=== PATIENT | female | born 1940 | race Caucasian/White ===

== ENCOUNTER 2017-03-22 23:06 | Inpatient (IN) ==
[2017-03-22] MEDS ORDERED: ASPIRIN PO STA (23:22)
[2017-03-22] MEDS ORDERED: CARDIZEM ONE (23:30)
[2017-03-22] MEDS ORDERED: CARDIZEM IV ONE (23:33)
[2017-03-22] MEDS ORDERED: CARDIZEM 100 MG/NS 100 MG/100 ML IVPB IV SCH (23:39)
[2017-03-22] MEDS: CARDIZEM 100 MG/NS 100 MG/100 ML IVPB IV SCH (23:49)
[2017-03-22 23:51] LABS: MANUAL DIFF NEEDED? NO
[2017-03-22 23:54] LABS: BASO% 0.4 % (0.0-0.8); EOS# 0.17 X1000 (0.0-0.7); EOS% 2.1 % (0.0-10.0); HEMATOCRIT 42.3 % (37.0-47.0); HEMOGLOBIN 14.4 g/dL (12.0-16.0); IMM GRAN# 0.02 X1000 (0.0-0.04); IMM GRAN% 0.2 % (0.0-0.5); LYMPH# 2.59 X1000 (1.2-3.4); LYMPH% 31.4 % (20.5-51.1); MCH 30.6 PG (27-31); MCV 89.8 FL (81-99); MONO# 1.18 X1000 (0.11-0.59); MONO% 14.3 % (1.7-9.3); NEUT% 51.6 % (42.2-75.2); PLT 197 X1000 (130-400); RBC 4.71 XMIL (4.2-5.4)
[2017-03-23 00:10] LABS: INR 1.02; PROTIME 10.7 Seconds (9.2-11.7); PTT 28.2 Seconds (22.0-36.0)
[2017-03-23 00:12] LABS: ALBUMIN 4.5 g/dL (3.5-5.0); CALCIUM 9.2 mg/dL (8.8-10.2); MAGNESIUM 2.1 mg/dL (1.5-2.7); TOTAL BILIRUBIN 0.47 mg/dL (0.20-1.00); TOTAL PROTEIN 7.6 g/dL (6.3-8.3)
[2017-03-23] MEDS: CARDIZEM 100 MG/NS 100 MG/100 ML IVPB IV SCH ×2 (00:31→02:01)
--- NOTE | 2017-03-23 00:42 | PROVIDER DOCUMENTATION ---
This chart was entered by Zaida Pacheco Scribe, acting as scribe for Rico Saenz MD. HPI-Cardiac General - General Chief Complaint: Palpitations Stated Complaint: PALPITATIONS Time Seen by Provider: 03/22/17 23:30 Source: patient Allergies/Adverse Reactions: Patient Allergies Allergy/AdvReac Type Severity Reaction Status Date / Time latex Allergy RASH Verified 03/22/17 23:26 Home Medications: Home Medication List Medication Instructions Recorded Confirmed Last Taken Type Calcium Carbonate/Vitamin D3 1 each PO DAILY 11/04/14 03/22/17 03/22/17 07:00 History [Calcium 600-Vit D3 200 Tablet] Docosahexanoic Acid/Epa [Fish Oil 1 each PO DAILY 11/04/14 03/22/17 03/22/17 07: 00 History Softgel] Esomeprazole Magnesium [Nexium] 20 mg PO DAILY 11/04/14 03/22/17 03/22/17 07:00 History Multivitamin [Multivitamins] 1 each PO DAILY 11/04/14 03/22/17 03/22/17 07:00 History Polyethylene Glycol 3350 [Miralax] 17 gm PO DAILY 11/04/14 03/22/17 03/22/17 07: 00 History Rivaroxaban [Xarelto] 20 mg PO HS 11/04/14 03/22/17 03/21/17 20:00 History Travoprost [Travatan Z] 1 drop OP HS 11/04/14 03/22/17 03/21/17 20:00 History Lisinopril/Hydrochlorothiazide 1 each PO DAILY #0 11/05/14 03/22/17 03/22/17 07 :00 Rx [Lisinopril-Hctz 20-12.5 mg Tab] Furosemide [Lasix] 40 mg PO DAILY #30 tablet 06/10/16 03/22/17 Unknown Rx Potassium Chloride [Klor-Con M20] 20 meq PO DAILY #7 tab.er.prt 06/10/1603/22/17 07:00 Rx Amlodipine Besylate [Amlodipine 5 mg PO DAILY 03/22/17 03/22/17 03/22/17 07:00 History Besylate] Clonazepam [Clonazepam] 0.5 mg PO QHS 03/22/17 03/22/1717 20:00 History - History of Present Illness-Cardiac Nature of Presenting Problem: 76 year old F presents to the ED with a cc of palpitations 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 PT states that she has a history of A-fib. Pt denies nausea, vomiting , chest pains, shortness of breath. Severity in ED: mild Onset/Duration: 1-3 hours ago Timing: still present Palpitation Quality: fast/pounding heart beat History of arrythmia: reports: A-Fib Aspirin Treatment Today: reports: 325 mg x 1, provided by ED Similar Symptoms Previously?: No Recently Seen Here or By Another Healthcare Provider: No Review of Systems - Adult - REVIEW OF SYSTEMS - ADULT Constitutional: denies: chills, fever Eyes: reports: no symptoms reported Ears, Nose, Mouth & Throat: reports: no symptoms reported Cardiovascular: reports: palpitations. denies: chest pain Respiratory: denies: cough, shortness of breath Gastrointestinal: denies: nausea, vomiting Genitourinary: reports: no symptoms reported Musculoskeletal: reports: no symptoms reported Integumentary: reports: no symptoms reported Neurological: reports: no symptoms reported Psychiatric: reports: no symptoms reported Endocrine: reports: no symptoms reported Hematologic/Lymphatic: reports: no symptoms reported Allergic/Immunologic: reports: no symptoms reported All Other Systems: Reviewed and Negative Past History - Adult - PAST MEDICAL HISTORY-ADULT Review of Records: reports: Nursing Assessment Review, Medications Reviewed Major Childhood Illnesses: reports: denies history Cardiovascular: reports: CAD, HTN, hyperlipidemia, palpitations Gastrointestinal: reports: GERD Other Conditions: reports: other cancer (left breast) - PRIOR SURGERIES/PROCEDURES Surgical/Procedure History: reports: cholecystectomy, hysterectomy, joint replacement (total hip), other (left mastectomy, 3 ablasions) - PRIOR HOSPITALIZATIONS Prior Hospitalizations: reports: for similar symptoms - IMMUNIZATION STATUS Childhood Immunizations: See Nurse Assessment Flu Vaccine: See Nurse Assessment - FAMILY HISTORY Family History: reviewed, not pertinent - SOCIAL HISTORY Smoking: non-smoker Substance Use: none/never Alcohol Use Frequency: never Physical Exam-General - PHYSICAL EXAM-ADULT Initial Vital Signs Reviewed: Yes - CONSTITUTIONAL General Appearance: appears well, alert, no apparent distress - RESPIRATORY Respiratory: chest non-tender, lungs clear, normal breath sounds - CARDIOVASCULAR Cardiovascular: irregularly irregular - GASTROINTESTINAL (ABDOMEN) Abdominal Exam: non tender, soft - SKIN Integumentary: normal color, normal turgor, warm/dry - PSYCHIATRIC Psych/Mental Status: normal mood/affect, normal thought content, normal thought process, oriented x 3 Progress - PLAN OF CARE/RESULTS Progress/Plan/Lab Results: Vital Signs - 8 hr 03/22/17 23:20 Pulse Rate 156 H Respiratory Rate 20 Blood Pressure 184/112 O2 Sat by Pulse Oximetry 99 Laboratory Results - last 24 hr 03/22/17 03/22/17 03/22/17 23:27 23:27 23:27 WBC 8.24 RBC 4.71 Hgb 14.4 Hct 42.3 MCV 89.8 MCH 30.6 MCHC 34.0 RDW Std Deviation 14.0 Plt Count 197 MPV 10.0 Immature Gran % (Auto) 0.2 Neut % (Auto) 51.6 Lymph % (Auto) 31.4 [place] % (Auto) 14.3 H Eos % (Auto) 2.1 Baso % (Auto) 0.4 Immature Gran # (Auto) 0.02 Neut # (Auto) 4.25 Lymph # (Auto) 2.59 [place] # (Auto) 1.18 H Eos # (Auto) 0.17 Baso # (Auto) 0.03 PT INR PTT (Actin FS) Sodium 142 Potassium 4.0 Chloride 103 Carbon Dioxide 25 Anion Gap 14 BUN 23 H Creatinine 1.0 H Estimated GFR/1.73 m2 54 BUN/Creatinine Ratio 23 Glucose 115 H Calculated Osmolality 288 Calcium 9.2 Magnesium 2.1 Total Bilirubin 0.47 AST 26 ALT 16 Alkaline Phosphatase 89 Creatine Kinase 159 Troponin T Avw-J-Hyxrytxyutf Pept 273 Total Protein 7.6 Albumin 4.5 Globulin 3.1 Albumin/Globulin Ratio 1.5 03/22/17 03/22/17 23:27 23:27 WBC RBC Hgb Hct MCV MCH MCHC RDW Std Deviation Plt Count MPV Immature Gran % (Auto) Neut % (Auto) Lymph % (Auto) [place] % (Auto) Eos % (Auto) Baso % (Auto) Immature Gran # (Auto) Neut # (Auto) Lymph # (Auto) [place] # (Auto) Eos # (Auto) Baso # (Auto) PT 10.7 INR 1.02 PTT (Actin FS) 28.2 Sodium Potassium Chloride Carbon Dioxide Anion Gap BUN Creatinine Estimated GFR/1.73 m2 BUN/Creatinine Ratio Glucose Calculated Osmolality Calcium Magnesium Total Bilirubin AST ALT Alkaline Phosphatase Creatine Kinase Troponin T < 0.010 Maf-V-Bxrkdutcmny Pept Total Protein Albumin Globulin Albumin/Globulin Ratio Orders Category Date Time Status Admit - [facility] Routine AdmDCTranf 03/23/17 00:39 Ordered Cardiac Monitoring DIRECTED Care 03/22/17 23:22 Active Saline Loc NOW Care 03/22/17 23:22 Active CHEST-PORTABLE [RAD] Stat Exams 03/22/17 23:22 Taken CBC WITH ELECTRONIC DIFF [HEME] Stat Lab 03/22/17 23:27 Completed CK PROFILE [SP CHEM] Stat Lab 03/22/17 23:27 Completed COMPREHENSIVE METABOLIC PANEL [CHEM] Stat Lab 03/22/17 23:27 Completed MAGNESIUM [CHEM] Stat Lab 03/22/17 23:27 Completed PRO B-NATRIURETIC PEPTIDE Stat Lab 03/22/17 23:27 Completed PROTIME WITH INR [COAG] Stat Lab 03/22/17 23:27 Completed PTT [COAG] Stat Lab 03/22/17 23:27 Completed TROPONIN T Stat Lab 03/22/17 23:27 Completed Aspirin Med 03/22/17 23:22 Discontinued 325 mg PO STAT STA Diltiazem 100 mg/Ns [Cardizem 100 mg/Ns] Med 03/22/17 23:36 Active 100 mg in 100 ml IV As Directed Diltiazem [Cardizem] Med 03/22/17 23:33 Discontinued 10 mg IV NOW ONE Diltiazem [Cardizem] Med 03/22/17 23:30 Discontinued 25 mg .ROUTE .STK-MED ONE EKG [EKG] Stat Ther 03/22/17 23:12 Ordered Transfer/Admit Order [TRANSFER] Routine Transfer 03/23/17 00:39 Ordered Result Diagrams: 03/22/17 23:27 03/22/17 23:27 - EKG 1 Time of EKG reading by physician:: 23:18 EKG Read and Signed by:: Rico Saenz EKG Interpretation (*Must complete 3 of following elements*): Abnormal Rate: 164 Rhythm: A-fib with RVR QRS: other (low voltage QRS) ST Wave: non-specific ST changes - XRAY 1 XRAY Study: Chest Impression: Abnormal XRAY Interpretation: mild interstital changes, cardiomegally: Dr. Saenz(ER MD) Departure - Departure Date of Disposition Decision: 03/23/17 Time of Disposition Decision: 00:41 DIAGNOSIS: Atrial fibrillation, Dyspnea Disposition: ADMITTED INPATIENT 09 Certified Medical Emergency: Emergent Condition: Stable Referrals and Follow-Ups: Sedrick Hays MD [Primary Care Provider] - - Critical Care Note This patient required my direct & personal management of CC.: No Attestation - Physician/ SOHAM Attestation The physician spent face to face time with patient:: Yes Advanced Practice Provider documentation review:: The physician spent face to face time with this patient and agrees with all MLP documentation, treatment, and medical decision making by the MLP. See provider notes for further information. This chart was documented by the indicated scribe, (Zaida Pacheco Scribe) and accurately reflects the services I performed and decisions made by me, Rico Saenz MD, as attested by the provider's signature.
[2017-03-23] MEDS ORDERED: LANOXIN IV ONE (01:15)
[2017-03-23] MEDS ORDERED: ZOFRAN IV PRN (03:03)
[2017-03-23] MEDS ORDERED: SALINE LOCK IV FLUID XX ONE (03:03)
[2017-03-23] MEDS ORDERED: TYLENOL PO PRN (03:03)
--- NOTE | 2017-03-23 04:46 | HISTORY AND PHYSICAL ---
DATE AND TIME OF HISTORY AND PHYSICAL: 03/23/2017 at 0110. PRIMARY CARE PROVIDER: Dr. Sedrick Hays. MEDICAL ART THERAPIST: Dr. Zavala at [facility] in [place]. CHIEF COMPLAINT: Palpitations. HISTORY OF PRESENT ILLNESS: Ms. Shirley is a 76-year-old female with a past medical history most notable for hypertension and previous problems with atrial fibrillation atrial flutter. She has previously had 3 cardiac ablations for treatment of this. Patient denies any previous history of having to be cardioverted. She reported tonight that approximately 3 hours prior to arrival to the ER that she began having palpitations. She also reported during this time a tight feeling across her chest as well as some shortness of breath and being dizzy as well. Upon arrival to the ER, patient was found to have a heart rate of 164. Her EKG did show atrial fibrillation with RVR at a rate of 164. Initial vital signs were heart rate 164 , respirations 20, blood pressure 184/112, and oxygen saturation was 99% on room air. The patient was given a Cardizem 10 mg IV push in the ER and was subsequently placed on a Cardizem drip. Even after being on the drip at 10 mg/hour, the patient was sustaining heart rate in the 140s. Just prior to preparing to give the patient 250 mcg of digoxin IV, the patient converted back to a normal sinus rhythm with a heart rate in the 70s. EKG was performed to confirm this as well which did show normal sinus rhythm. The patient's Cardizem drip was reduced down to 5 mg/hour. At this time, we will admit the patient for further treatment and evaluation of her atrial fibrillation and we will place a cardiology consult. REVIEW OF SYSTEMS: A 12 point review of systems was conducted with the patient. All were negative except for pertinent positives mentioned above HPI. PAST MEDICAL HISTORY: 1. Paroxysmal atrial fibrillation. 2. Three cardiac ablations. 3. Hypertension. 4. Left breast cancer. PAST SURGICAL HISTORY: 1. Left mastectomy in 1998. 2. Cholecystectomy. 3. Hysterectomy. 4. Left total hip replacement. 5. Tubal ligation. 6. Three cardiac ablations. SOCIAL HISTORY: The patient denies any previous history of tobacco, alcohol or illicit drug use. She does live in [place], [place], with her who is at bedside at the time of examination. She reports that she enjoys gardening and working outside in her yard. FAMILY MEDICAL HISTORY: Patient reports her mother had a history of heart disease and colon cancer. She reports her father had a history of stroke and hypertension. ALLERGIES: Patient reports allergies to latex. HOME MEDICATIONS: 1. Lisinopril 20 mg p.o. b.i.d. 2. Meloxicam 7.5 mg p.o. with supper. 3. Coreg 6.25 mg p.o. b.i.d. 4. Omeprazole 20 mg p.o. daily. 5. Calcium 500 plus vitamin D tablet 1 p.o. daily. 6. Lasix 40 mg p.o. daily p.r.n. 7. Potassium chloride 20 mEq p.o. at bedtime. 8. MiraLAX 17 g p.o. at bedtime. 9. Travatan Z ophthalmic drops 1 drop in both eyes at bedtime. 10. Xarelto 15 mg p.o. at bedtime. 11. Multivitamin 1 p.o. daily. 12. Clonazepam 0.5 mg p.o. at bedtime. 13. Amlodipine 5 mg p.o. daily. DIAGNOSTIC DATA: Laboratory results: White blood cell count 8.24, hemoglobin 14.4, hematocrit 42.3, platelet count is 197,000. PT 10.7, INR 1.02, PTT 28.2. Sodium 142, potassium 4, bicarb 25, chloride 103, BUN 23, creatinine 1.0 with an estimated GFR of 54, glucose 115, calcium 9.2, magnesium 2.1. Liver function tests within normal limits. CK 159, troponin less than 0.01. ProBNP 273. TSH 2.7. EKG showed atrial fibrillation with RVR with nonspecific ST and T-wave abnormality. Rate was 164 with a QTc of 488. PHYSICAL EXAMINATION: VITAL SIGNS: Temperature 98.3 degrees, heart rate 76, respirations 18, blood pressure 133/82. Oxygen saturation is 96% on room air. GENERAL: Miss Clementine Shirley is a very pleasant 76-year-old female who is resting comfortably in the ER stretcher. She was in no acute distress. She is awake, alert and able answer all questions appropriately. HEENT: Head is atraumatic, normocephalic. Pupils are equal, round, reactive to light. Oral mucosa is moist. NECK: Supple. Trachea midline. No carotid bruits noted to auscultation bilaterally. CARDIOVASCULAR: Patient has normal S1, S2. No murmurs, gallops, or rubs appreciated with a tachycardic rate that is irregular. PULMONARY: Patient has symmetrical chest expansion bilaterally. Lung sounds are clear to auscultation in bilateral full long. ABDOMEN: Soft, nontender, nondistended. Bowel sounds were present all 4 quadrants, normoactive. EXTREMITIES: No cyanosis, clubbing, or edema noted. Pulse, motor and sensory were intact in all extremities. Pedal pulses were 3+ bilaterally. NEUROLOGICAL: Patient is alert and oriented x4. Cranial nerves 2-12 are grossly intact. ASSESSMENT AND PLAN: 1. Atrial fibrillation with a rapid ventricular response. As previously mentioned, the patient was given a 10 mg IV Cardizem bolus in the ER and was placed on a drip initially at 10 mg/hour. Though the patient has converted to normal sinus rhythm at this time, we will continue the drip at 5 mg/hour and we will continue to monitor this closely. We have placed a consult with Dr. Suarez with Cardiology and we will await his evaluation and further recommendations. We will also continue the patient's Xarelto at 15 mg p.o. daily. 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 2. Hypertension. The patient does take lisinopril and amlodipine for hypertension though at this time we will hold her amlodipine and continue her lisinopril only. We will monitor her blood pressure closely given that she is also on a Cardizem drip. We will hold her lisinopril if her systolic blood pressure is less than 120. 3. Deep venous thrombosis prophylaxis currently being provided with the patient' s previously prescribed Xarelto 15 mg p.o. daily. 4. For gastrointestinal prophylaxis, we will continue the patient's omeprazole 20 mg p.o. daily. The patient will be placed on CIC with telemetry though at this time we did not have any CIC beds available and she has been placed in an ICU bed until a CIC bed is available. We will have vital signs q.4 h. She will be on heart healthy diet. We will do a series of cardiac enzymes and repeat a BMP and magnesium in the morning. Further orders and recommendations pending hospital course, diagnostic studies, and physician evaluation. 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 cc: MD Sedrick Argueta MD [facility]OSPITALKeshav
--- NOTE | 2017-03-23 05:27 | EKG Report ---
Test Performed on : 03/22/2017 11:18:09 PM Test Reason : palpatations Blood Pressure : / mmHG Vent. Rate : 164 BPM Atrial Rate : 159 BPM P-R Int : 000 ms QRS Dur : 074 ms QT Int : 296 ms P-R-T Axes : 000 010 196 degrees QTc Int : 488 ms Atrial fibrillation. with rapid ventricular response. Low voltage QRS Nonspecific ST and T wave abnormality Abnormal ECG When compared with ECG of 10-JUN-2016 18:56, Atrial fibrillation. has replaced Sinus rhythm. Vent. rate has increased BY 60 BPM Unconfirmed Result
--- NOTE | 2017-03-23 05:32 | EKG Report ---
Test Performed on : 03/23/2017 01:51:58 AM Test Reason : A-Fib Blood Pressure : / mmHG Vent. Rate : 078 BPM Atrial Rate : 078 BPM P-R Int : 162 ms QRS Dur : 080 ms QT Int : 408 ms P-R-T Axes : 054 -17 010 degrees QTc Int : 465 ms Normal sinus rhythm. Normal ECG When compared with ECG of 22-MAR-2017 23:18, (Unconfirmed) Sinus rhythm. has replaced Atrial fibrillation. Vent. rate has decreased BY [address] no longer depressed in Lateral leads Nonspecific T wave abnormality no longer evident in Lateral leads Confirmed by Jimenez LOVE, Kyle Marquez ([id number]) on 03/26/2017 7:12:18 AM
[2017-03-23] MEDS ORDERED: PRILOSEC PO SCH (07:00)
--- NOTE | 2017-03-23 08:16 | Diag Imaging Result Doc PS360 ---
EXAM: CHEST-PORTABLE HISTORY: CP TECHNIQUE: AP portable at 2335 COMMENT: Compared to 06/10/2016 the interstitial markings are generally more prominent. The heart size is not enlarged. Pulmonary vascularity is also somewhat prominent. There are no focal pulmonary opacities. IMPRESSION: Mild interstitial pulmonary edema. Electronically signed by Jose Francisco Chun 03/23/2017 8:14 AM
[2017-03-23 08:27] LABS: AGAP 13; BUN 19 mg/dL (8-22); CALCIUM 8.8 mg/dL (8.8-10.2); CHLORIDE 102 mmol/L (98-107); CK PROFILE 127 U/L (24-173); COSMO 282; MAGNESIUM 2.1 mg/dL (1.5-2.7); POTASSIUM 3.7 mmol/L (3.5-5.1); SODIUM 141 mmol/L (136-145); TCO2 26 mmol/L (25-35)
[2017-03-23] MEDS ORDERED: COREG PO SCH ×2 (09:00→10:15)
[2017-03-23] MEDS ORDERED: PRINIVIL PO SCH (09:00)
[2017-03-23] MEDS ORDERED: CALTRATE 600 + D PO SCH (09:00)
[2017-03-23] MEDS ORDERED: THERA M PLUS PO SCH (09:00)
[2017-03-23] MEDS ORDERED: CARDIZEM CD PO SCH (09:15)
--- NOTE | 2017-03-23 09:43 | PROGRESS NOTE ---
DATE: 03/23/2017 SUBJECTIVE: The patient's history was reviewed. She was examined and the plan was discussed with her. She wants to go home. She states that she converted once she was on the Cardizem drip at about 2 or 3 a.m. this morning. She has an episode of atrial fibrillation about every 6-8 weeks. Sometimes it is severe. 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 She is followed by Dr. Zavala. OBJECTIVE: Vital Signs: 98.1, 67, 14, 168/87 at the time of my examination, 99% saturated on room air. General: Patient is alert, oriented, conversive, and appropriate. Lungs: Clear to auscultation. Cardiovascular: Regular with occasional ectopy. She does not appear to be in atrial fibrillation. Peripheral pulses are easily palpable. LABORATORIES: BUN and creatinine were normal. CK and troponin negative x2. ASSESSMENT/PLAN: The patient was previously on amlodipine for blood pressure control but because she had such a profound reaction to the Cardizem, I would like to switch this amlodipine out and give her Cardizem CD 180 on a daily basis and then have her follow up with Dr. Zavala. If it would meet with the approval of the consulting computer support technician here, I would like to make this switch in medication and discharge her home later today. cc: Sedrick Hays MD
[2017-03-23] MEDS ORDERED: ALDACTONE PO SCH (10:15)
--- NOTE | 2017-03-23 11:39 | CONSULTATION ---
DATE OF CONSULTATION: 03/23/2017 REQUESTING PHYSICIAN: Sedrick Hays MD REASON FOR CONSULTATION: Irregular heart beat, atrial fibrillation, and dyspnea. HISTORY OF PRESENT ILLNESS: Ms. Shirley is a 76-year-old female who is well known to Dr. Hays and also to Dr. Ernesto Zavala, Human Resources Psychologist, in [place]. The patient presented to the Emergency Room Department with a few hour duration of the sudden onset of palpitations. The patient in addition felt some headache and shortness of breath with it. She got somewhat upset about it and upon presentation she was given IV Cardizem after the demonstration of atrial fibrillation with a rapid response on a 12 lead EKG which was done initially at 11:18 p.m.. She converted at about 2 o'clock in the morning and she is feeling better now. I am seeing her at about 9:55 on 03/23/2017. She is back to her normal self. She is just somewhat worried because her blood pressure is running high. The patient's past history is positive for long-term hypertension. She has been treated previously with felodipine and metoprolol. Recently they switched her over Coreg and amlodipine. She also has been taking Lasix as needed for swelling. The patient has a history of atrial fibrillation that has been going on for about 5 years. This was initially treated medically in [place] by Dr. Zavala and then lately she has undergone 2 ablations for atrial fibrillation and then about a year ago underwent ablation for atrial flutter. Subsequently she did well for a few months and then about 3 or 4 months she started having short lasting episodes of palpitations again lasting about 1-2 hours. However, the one that happened last night was of longer duration and associated with more symptoms. PAST MEDICAL HISTORY: Her medical history is negative for hyperlipidemia or diabetes. She has never had a stroke. No heart attacks. She has had previous stress tests and echocardiograms done in [place] at [facility]. PAST SURGICAL HISTORY: The patient's surgical history is positive for breast cancer on the left side. She had a mastectomy in 1998 and took tamoxifen for about 10 years. She is followed periodically by her debt collection specialist. She has had a hysterectomy in the past. She had a broken hip from an accidental fall in 2009 and received a new hip. She has had a cholecystectomy and cataract surgery and she has glaucoma. SOCIAL HISTORY: She is to her for 58 years. 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 She has 4 grownup children. She is not a smoker and not a drinker. HOME MEDICATIONS: Her home medications at this time include lisinopril 20 mg twice a day, meloxicam 7.5 mg with supper, carvedilol 6.25 mg twice a day, Prilosec 20 mg daily, calcium carbonate daily, furosemide 40 mg daily, potassium chloride as needed, Travoprost at bedtime, rivaroxaban 50 mg at bedtime, multivitamin daily, fish oil, Klonopin 0.5 mg at bedtime, and amlodipine 5 mg daily. ALLERGIES: She is allergic to latex. REVIEW OF SYSTEMS: She is generally active. She has no definite limitations to performing physical activities. In general, she feels well. Multiple systems were investigated. She has had diverticulitis about a month ago requiring antibiotics under the supervision of Dr. Hays and then Dr. Parks. This has resolved. No other positives. No pneumonia, COPD, kidney stones, etc.. She had some issues with her kidneys in the past as a youngster however she has had recurrent urinary tract infections according to her. PHYSICAL EXAMINATION: VITAL SIGNS: Today her blood pressure is 156/78, pulse 73, respirations 15, and temperature 98.1. GENERAL: She is awake, alert, and in no distress. HEENT: Normal. CHEST: Clear to auscultation and percussion. CARDIOVASCULAR: Heart sounds are regular and rhythmic. No gallop or murmur. ABDOMEN: Nontender and soft. No masses and no hepatomegaly. EXTREMITIES: The extremities show good pulses. No peripheral edema. NEUROLOGICAL: She follows commands and moves all extremities. Neurological exam is normal. BLOOD WORK: Her hemoglobin yesterday was 14.4, platelet count 197,000, and white count was normal. PT and PTT are normal. This morning sodium is 141, potassium 3.7, BUN 19, and creatinine 0.8. Two troponins were normal. CPKs were normal. ProBNP was normal. Liver function tests were normal. TSH is normal. Chest x-ray done in the Emergency Room Department shows questionable mild interstitial pulmonary edema. EKG done at 1:58 in the morning showed sinus rhythm, VT interval 162 ms, and ST-T wave normal. IMPRESSION: 1. Patient with a well documented history of paroxysmal atrial fibrillation who presented to the Emergency Room with recurrent fibrillation and rapid response which has converted after using IV Cardizem. 2. History of hypertension, not optimally controlled. 3. History of diverticulitis. 4. Status post ablation of atrial fibrillation and atrial flutter. 5. Remote history of breast cancer. RECOMMENDATIONS: At this point in time I would suggest to increase her carvedilol to 12.5 mg twice a day and add a low dose of spironolactone. We could probably stop potassium supplements. The patient may follow up with her regular security manager in [place] at her leisure. I am sure they will determine what further steps are necessary in her management. The case was discussed with Dr. Hays and he is in agreement. Thank you for the opportunity to participate in her evaluation. Best Regards. cc: MD Sedrick Lane MD
[2017-03-23 12:55] VITALS: BP 145/75
[2017-03-23] MEDS ORDERED: MOBIC PO SCH (17:00)
[2017-03-23] MEDS ORDERED: TRAVATAN 0.004% OPH SOLN BOTH EYES SCH (21:00)
[2017-03-23] MEDS ORDERED: MIRALAX PO SCH (21:00)
[2017-03-23] MEDS ORDERED: XARELTO PO SCH (21:00)
[2017-03-23] MEDS ORDERED: KLONOPIN PO SCH (21:00)
--- NOTE | 2017-03-24 14:26 | DISCHARGE SUMMARY ---
ADMISSION DATE: 03/23/2017 DISCHARGE DATE: 03/23/2017 DISCHARGE DIAGNOSES: 1. Paroxysmal atrial fibrillation. 2. Hypertension. CONSULTATIONS: Spencer Suarez MD HOSPITAL COURSE: This 76-year-old white female with a known history of paroxysmal atrial fibrillation despite 3 ablation procedures presented with a prolonged and symptomatic episode of paroxysmal atrial fibrillation. She came to the Emergency Room and was evaluated and they gave her some Diltiazem and hung a drip and somewhere around 2-3 a.m. on the morning after admission she converted spontaneously to a sinus rhythm. When I saw her in the morning, since she had been admitted by the hospitalist service she was completely asymptomatic and requesting discharge home. She is generally followed by Dr. Zavala in [place] for her atrial fibrillation. I consulted Dr. 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 The patient was happy with this conclusion and was discharged home in good condition from the ICU. FOLLOW UP: She is to follow up as previously scheduled. cc: Sedrick Hays MD
== END 2017-03-23 15:08 | disposition home or self-care (01) ==
LOC: ED 23:06 → 3N 03-23 00:42 → ICU 03-23 01:19 → SUATTDRO 03-23 01:19
PROVIDERS: ADMIT Internal Medicine; ATTEND Internal Medicine